=== PATIENT | male | born 1955 | race Caucasian/White ===

== ENCOUNTER → 2022-04-23 | Outpatient (CLI) | payer MEDICARE | LOC: ORTHO 09:13 | PROVIDERS: ATTEND Orthopaedic Surgery | DX: S82.61XA Displaced fracture of lateral malleolus of right fibula, initial encounter for closed fracture (principal); I10 Essential (primary) hypertension; K21.9 Gastro-esophageal reflux disease without esophagitis; E78.00 Pure hypercholesterolemia, unspecified; X58.XXXA Exposure to other specified factors, initial encounter | CPT/HCPCS: 99203 ==

== ENCOUNTER → 2022-05-07 | Outpatient (CLI) | payer MEDICARE ==
--- NOTE | 2022-05-07 09:53 | Diagnostic Imaging Report ---
INDICATION: Followup orthopedic assessment, pain, fracture. COMPARISON: 04/21/2022 TECHNIQUE: 3 radiographs of the right ankle dated 05/07/2022 FINDINGS: Obliquely oriented fracture through the distal fibula at the level of the tibial plafond and extending superior laterally is again identified with minimal lateral displacement, which is stable. Mild blurring of the fracture margins without significant periosteal reaction. No new fracture or dislocation. No destructive osseous process. The talar dome is unremarkable. Ankle mortise is symmetric. Scattered degenerative changes, particularly within the midfoot. Small posterior and plantar calcaneal enthesophytes. IMPRESSION: Minimally displaced distal fibular fracture at the level of the tibial plafond as described above, appearing similar to the prior examination in positioning. Very minimal early healing of the distal fibular fracture is suggested without significant periosteal reaction. Recommend continued radiographic followup. Dictated by: Dictated on workstation # [id number]
== END ==
LOC: ORTHO 08:32
PROVIDERS: ATTEND Orthopaedic Surgery
DX: Z47.89 Encounter for other orthopedic aftercare (principal)
CPT/HCPCS: 73610; G0463; 99213

== ENCOUNTER → 2022-06-05 | Outpatient (CLI) | payer MEDICARE ==
--- NOTE | 2022-06-05 13:51 | Diagnostic Imaging Report ---
INDICATION: Followup ankle fracture. COMPARISON: 05/07/2022 FINDINGS: Multiple radiographic views of the right ankle were obtained and again show oblique oriented minimally displaced fracture of the distal fibula. There is no appreciable bridging callus formation or other evidence of significant interval healing. Fracture fragments are in stable alignment. No new acute osseous abnormality is seen. There is persistent soft tissue swelling. IMPRESSION: 1. Stable nonacute fracture the distal right fibula. Dictated by: Dictated on workstation # [id number]
== END ==
LOC: ORTHO 09:11
PROVIDERS: ATTEND Orthopaedic Surgery
DX: Z47.89 Encounter for other orthopedic aftercare (principal); S82.831A Other fracture of upper and lower end of right fibula, initial encounter for closed fracture; X58.XXXA Exposure to other specified factors, initial encounter
CPT/HCPCS: 73610; G0463; 99213

== ENCOUNTER → 2022-07-10 | Outpatient (CLI) | payer MEDICARE, OTHER ==
--- NOTE | 2022-07-10 09:05 | Diagnostic Imaging Report ---
INDICATION: Follow-up ankle fracture. COMPARISON: 06/05/2022 FINDINGS: Multiple radiographic views of the right ankle were obtained and again show oblique oriented minimally displaced fracture of the distal fibula. There is no appreciable bridging callus formation or other evidence of significant interval healing. Fracture fragments are in stable alignment. No new acute osseous abnormality is seen. Soft tissue swelling is slightly improved. IMPRESSION: 1. Stable nonacute fracture the distal right fibula. Dictated by: Dictated on workstation # [id number]
== END ==
LOC: ORTHO 08:11
PROVIDERS: ATTEND Orthopaedic Surgery
DX: Z47.89 Encounter for other orthopedic aftercare (principal); S82.61XD Displaced fracture of lateral malleolus of right fibula, subsequent encounter for closed fracture with routine healing; K21.9 Gastro-esophageal reflux disease without esophagitis; E78.00 Pure hypercholesterolemia, unspecified; I10 Essential (primary) hypertension; X58.XXXD Exposure to other specified factors, subsequent encounter
CPT/HCPCS: 73610; G0463; 99213

== ENCOUNTER → 2022-08-28 | Outpatient (CLI) | payer MEDICARE, OTHER ==
--- NOTE | 2022-08-28 09:19 | Diagnostic Imaging Report ---
INDICATION: Right ankle fracture followup. TECHNIQUE: AP, oblique, and lateral views of the right ankle were obtained and compared with 07/10/2022. FINDINGS: The oblique fracture of the distal fibula appears in stable alignment compared to the prior study with signs of early healing. There is no new bony abnormality. There is some calcaneal spurring and some degenerative change of the tarsal bones. IMPRESSION: Stable alignment of the distal fibular oblique fracture with signs of ongoing healing. Dictated by: Dictated on workstation # [id number]
== END ==
LOC: ORTHO 08:21
PROVIDERS: ATTEND Orthopaedic Surgery
DX: S82.831D Other fracture of upper and lower end of right fibula, subsequent encounter for closed fracture with routine healing (principal); X58.XXXD Exposure to other specified factors, subsequent encounter
CPT/HCPCS: 73610